=== PATIENT | female | born 1985 | race Caucasian/White ===

== ENCOUNTER 2020-04-26 04:23 | Emergency (ER) | payer MEDICAID ==
[~2020-04-26] VITALS: Ht 157.5 cm; Wt 80.9 kg
[2020-04-26] MEDS ORDERED: ALBUTEROL SULFATE 5 MG/ML 20 ML NEB SOLN [BULK] NEB ONE (05:00)
[2020-04-26] MEDS ORDERED: SODIUM CHLORIDE 0.9% 1,000 ML IV ONE (05:00)
[2020-04-26] MEDS ORDERED: 0.9% SODIUM CHLORIDE 5 ML NEB SOLUTION NEB ONE (05:11)
[2020-04-26] MEDS: ALBUTEROL SULFATE 5 MG/ML 20 ML NEB SOLN [BULK] NEB ONE ×2 (05:49→06:35)
[2020-04-26] MEDS ORDERED: PredniSONE 20 MG TABLET PO ONE (06:00)
[2020-04-26 06:45] VITALS: BP 126/70
== END 2020-04-26 07:56 | disposition home or self-care (01) ==
LOC: EMS 04:30
DX: J45.909 Unspecified asthma, uncomplicated (principal)
CPT/HCPCS: 36415; 84702; 94640; 96360; 99291; J7030; J7512; J7611